=== PATIENT | male | born 1995 | race Caucasian/White ===

== ENCOUNTER 2017-05-24 14:45 | Outpatient (CLI) | payer MEDICAID ==
--- NOTE | 2017-05-24 16:20 | XRAY Report ---
THREE VIEW THORACIC SPINE: 05/24/2017 CLINICAL INDICATION: Pain. COMPARISON: CT chest 10/30/2014. FINDINGS: AP, lateral, swimmer's views of the thoracic spine demonstrate interval posterior luisito and pedicle screw fusion spanning T7 through T10. There is a mild compression fracture of T6. Aortic stent graft is again noted. Posterior luisito and pedicle screw fusion from T11 to the lumbar spine is again noted. IMPRESSION: INTERVAL POSTERIOR LUISITO AND PEDICLE SCREW FUSION SPANNING T7 THROUGH T10, WITH A MILD COMPRESSION DEFORMITY OF T6. TD: 05/24/2017 16:19
--- NOTE | 2017-05-24 16:22 | XRAY Report ---
THREE VIEW LUMBAR SPINE: 05/24/2017 CLINICAL INDICATION: Spine pain. FINDINGS: AP, lateral, and coned down views of the lumbar spine were obtained. There is posterior luisito and pedicle screw fusion spanning T11 through L3, and a second posterior luisito and pedicle screw fusion spanning L5-S1, with a spacer in the L5-S1 disk space. There is no evidence of acute fracture. The bowel gas pattern appears unremarkable. IMPRESSION: POSTERIOR LUISITO AND PEDICLE SCREW FUSIONS ABOVE. NO EVIDENCE OF ACUTE FRACTURE. TD: 05/24/2017 16:21
== END 2017-05-24 14:46 | disposition home or self-care (01) ==
LOC: DI.N 14:45
PROVIDERS: ATTEND Family Medicine
DX: M48.54XA Collapsed vertebra, not elsewhere classified, thoracic region, initial encounter for fracture (principal); Z98.1 Arthrodesis status; G89.4 Chronic pain syndrome; E66.9 Obesity, unspecified; E03.9 Hypothyroidism, unspecified; E04.1 Nontoxic single thyroid nodule
CPT/HCPCS: 36415; 72072; 72100; 80053; 80061; 83721; 84439; 84443; 84481; 85025; 85651; 86376

== ENCOUNTER 2017-05-24 14:49 | Outpatient (CLI) | payer MEDICAID ==
[2017-05-24 18:47] LABS: BASOPHILS % (AUTO) 0.6 %; EOSINOPHILS % (AUTO) 0.6 %; HGB - HEMOGLOBIN 13.5 g/dL (14.0-18.0); LYMPHOCYTES # (AUTO) 1.9 10^3/uL (1.5-3.5); LYMPHOCYTES % (AUTO) 32.8 %; MEAN CORPUSCULAR HGB CONC 32.7 g/dL (32.0-36.0); MEAN CORPUSCULAR VOLUME 82.6 fL (80.0-94.0); MEAN PLATELET VOLUME 8.5 fL (7.4-11.4); MONOCYTES # (AUTO) 0.4 10^3/uL (0.0-1.0); MONOCYTES % (AUTO) 7.3 %; NEUTROPHILS # (AUTO) 3.3 10^3/uL (1.5-6.6); NEUTROPHILS % (AUTO) 58.7 %; PLT - PLATELET COUNT 212 10^3/uL (130-450); RED BLOOD COUNT 4.99 10^6/uL (4.70-6.10); RED CELL DISTRIBUTION WIDTH 13.6 % (12.0-15.0); WHITE BLOOD COUNT 5.7 x10^3/uL (4.8-10.8)
[2017-05-24 19:05] LABS: ALBUMIN 4.3 g/dL (3.2-5.5); ALBUMIN/GLOBULIN RATIO 1.5 (1.0-2.2); ALKALINE PHOSPHATASE 63 IU/L (42-121); ALT ALANINE AMINOTRANSFERASE 23 IU/L (10-60); AST ASPARTATE AMINOTRANSFERASE 18 IU/L (10-42); BILIRUBIN,TOTAL 0.4 mg/dL (0.2-1.0); BUN - BLOOD UREA NITROGEN 15 mg/dL (6-20); CARBON DIOXIDE - CO2 29 mmol/L (21-32); CHLORIDE 106 mmol/L (101-111); CHOL/HDL RATIO 4.4 (<5.0); CHOLESTEROL 140 mg/dL; CREATININE 0.7 mg/dL (0.6-1.2); GFR - MDRD 142 (>89); GLUCOSE 80 mg/dL (70-100); HDL CHOLESTEROL 32 mg/dL; LDL CHOLESTEROL,CALCULATED 74 mg/dL; LDL/HDL RATIO 2.3 (<3.6); SODIUM 139 mmol/L (135-145); TOTAL PROTEIN 7.1 g/dL (6.7-8.2); VLDL CHOLESTEROL 34 mg/dL
[2017-05-24 19:16] LABS: THYROID STIMULATING HORMONE 2.82 uIU/mL (0.34-5.60)
[2017-05-24 19:18] LABS: FREE T4 (FREE THYROXINE) 0.8 ng/dL (0.58-1.64)
== END 2017-05-24 14:50 | disposition home or self-care (01) ==
LOC: LAB.N 14:49
PROVIDERS: ATTEND Family Medicine
DX: M54.9 Dorsalgia, unspecified (principal); G89.4 Chronic pain syndrome; E66.9 Obesity, unspecified; E03.9 Hypothyroidism, unspecified; E04.1 Nontoxic single thyroid nodule
CPT/HCPCS: 36415; 80053; 80061; 83721; 84439; 84443; 84481; 85025; 85651; 86376

== ENCOUNTER 2017-06-15 21:56 | Emergency (ER) | payer MEDICAID ==
--- NOTE | 2017-06-15 23:05 | ED Physician Documentation ---
PD HPI BACK PAIN - Stated complaint Stated Complaint: LOWER BACK PX - Chief complaint Chief Complaint: Back Pain - History obtained from History obtained from: Patient - History of Present Illness Timing - onset: Today Timing - duration: Hours Timing - details: Abrupt onset, Still present (he has chronic back pain with prior surgeries and has sciatic symptoms to right leg. Is moving here and staying with sister. He slept on he rsofa and has worse pain over baseline today. He says it feels "warm" in the area that is hurting.) Location: Lower Quality: Pain, Spasm, Aching Associated symptoms: Numbness (baseline in leg.). No: Fever, Weakness, Incontinent of urine Worsened by: Movement, Palpation Contributing factors: No: Lifting, Twisting, Trauma Similar symptoms before: Diagnosis (lumbar pain with surgeries, disc problems, and chronic pain.) Recently seen: Not recently seen Review of Systems Constitutional: denies: Fever, Chills Nose: denies: Rhinorrhea / runny nose, Congestion Throat: denies: Sore throat Respiratory: denies: Cough GI: denies: Abdominal Pain Skin: denies: Rash, Lesions Musculoskeletal: reports: Back pain. denies: Neck pain, Extremity pain Neurologic: denies: Generalized weakness PD PAST MEDICAL HISTORY - Past Medical History Cardiovascular: Deep vein thrombosis Respiratory: Asthma Neuro: None Endocrine/Autoimmune: HyPOthyroidism Musculoskeletal: Other - Past Surgical History Past Surgical History: Yes Ortho: Spine surgery - Present Medications Home Medications: Ambulatory Orders Medication Instructions Recorded Confirmed Levothyroxine Sodium [Synthroid] 112 mcg PO DAILY 06/15/17 06/15/17 oxyCODONE/ACET 5/325 [Percocet 5 1 - 2 tab PO PRN PRN 06/15/17 06/15/17 mg/325 mg] Dexamethasone [Decadron] 4 mg PO DAILY #5 tablet 06/16/17 Lidocaine Patch 5% [Lidoderm Patch] 1 each TOP DAILY #10 patch 06/16/17 Oxycodone HCl/Acetaminophen 1 each PO Q6H PRN #20 tablet 06/16/17 [Percocet 5-325 mg Tablet] Tizanidine HCl 4 mg PO TID PRN #30 capsule 06/16/17 - Allergies Allergies/Adverse Reactions: Allergies Allergy/AdvReac Type Severity Reaction Status Date / Time Latex, Natural Rubber AdvReac Respiratory Verified 06/15/17 22:09 levothyroxine AdvReac Unknown Verified 06/15/17 22:09 tape AdvReac Rash Uncoded 06/15/17 22:09 - Social History Does the pt smoke?: No Smoking Status: Never smoker Does the pt drink ETOH?: No Does the pt have substance abuse?: No - Immunizations Immunizations are current?: Yes - POLST Patient has POLST: No PD ED PE NORMAL - Vitals Vital signs reviewed: Yes - General General: Alert and oriented X 3, Well developed/nourished, Other (seems in pain for lumbar area) - HEENT HEENT: Pharynx benign - Neck Neck: Supple, no meningeal sign, No adenopathy - Cardiac Cardiac: RRR, No murmur - Respiratory Respiratory: Clear bilaterally - Abdomen Abdomen: Soft, Non tender - Male Male : Deferred - Rectal Rectal: Deferred - Back Back: No CVA TTP, Other (tender upper lumbar area with prior scar noted, no redness nor sores. Muscular tenderness. No vertebral tnederness to percussion. ) - Derm Derm: Normal color, Warm and dry, No rash - Neuro Neuro: Alert and oriented X 3, No motor deficit, Normal speech, Other ( decreased sensation right lateral lower leg, which is baseline per patient. 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 No new neuro symptoms (prior sciatic still present) and had normal WBC and ESR. I feel he can be treated with meds and no further acute testing. ), d/w patient Departure - Departure Disposition: 01 Home, Self Care Record reviewed to determine appropriate education?: Yes Instructions: ED Low Back Pain Injury Prescriptions: Dexamethasone [Decadron] 4 mg PO DAILY #5 tablet Lidocaine Patch 5% [Lidoderm Patch] 1 each TOP DAILY #10 patch Oxycodone HCl/Acetaminophen [Percocet 5-325 mg Tablet] 1 each PO Q6H PRN #20 tablet PRN Reason: Pain Tizanidine HCl 4 mg PO TID PRN #30 capsule PRN Reason: Spasms Comments: Lidocaine patch over the area that hurts and change it daily. Decadron steroid anti-inflammatory for 5 more days. He can use muscle relaxants tizanidine 3 times a day if needed for spasms and stiffness. Use some ibuprofen or naproxen 2-3 times a day. Add Tylenol or Percocet if needed for worse pain. This would be intended as a short-term treatment hopefully as things improve with the initial medicines. Discharge Date/Time: 06/16/17 02:06
[2017-06-15] MEDS ORDERED: HYDROmorphone 1 MG/ML CARPUJECT IM STA (23:25)
[2017-06-15] MEDS ORDERED: METHOCARBAMOL 500 MG TABLET PO STA (23:25)
[2017-06-15] MEDS ORDERED: KETOROLAC 30 MG/ML VIAL IM STA (23:25)
[2017-06-16 00:26] LABS: BASOPHILS % (AUTO) 0.6 %; EOSINOPHILS # (AUTO) 0.1 10^3/uL (0.0-0.7); EOSINOPHILS % (AUTO) 1.3 %; HGB - HEMOGLOBIN 14.5 g/dL (14.0-18.0); LYMPHOCYTES # (AUTO) 2.2 10^3/uL (1.5-3.5); LYMPHOCYTES % (AUTO) 27.8 %; MEAN CORPUSCULAR HEMOGLOBIN 28.7 pg (27.0-31.0); MEAN CORPUSCULAR HGB CONC 34.4 g/dL (32.0-36.0); MEAN CORPUSCULAR VOLUME 83.5 fL (80.0-94.0); MEAN PLATELET VOLUME 8.4 fL (7.4-11.4); MONOCYTES # (AUTO) 0.8 10^3/uL (0.0-1.0); MONOCYTES % (AUTO) 10.7 %; NEUTROPHILS # (AUTO) 4.6 10^3/uL (1.5-6.6); NEUTROPHILS % (AUTO) 59.6 %; PLT - PLATELET COUNT 189 10^3/uL (130-450); RED BLOOD COUNT 5.06 10^6/uL (4.70-6.10); RED CELL DISTRIBUTION WIDTH 13.8 % (12.0-15.0); WHITE BLOOD COUNT 7.8 x10^3/uL (4.8-10.8)
[2017-06-16] MEDS ORDERED: DEXAMETHASONE 10 MG/ML VIAL PO STA (01:40)
[2017-06-16] MEDS ORDERED: oxyCODONE/ACET 5/325 Prepack 4 PO STA (01:40)
[2017-06-16 01:48] VITALS: BP 141/95
[2017-06-16] MEDS ORDERED: CHERRY SYRUP 10 ML UDC PO ONE (01:52)
== END 2017-06-16 02:06 | disposition home or self-care (01) ==
LOC: ED 21:56
DX: M54.5 Low back pain (principal); G89.29 Other chronic pain; J45.909 Unspecified asthma, uncomplicated; E03.9 Hypothyroidism, unspecified; Z86.718 Personal history of other venous thrombosis and embolism
CPT/HCPCS: 36415; 85025; 85651; 96372; 99283; A9270; J1170

== ENCOUNTER 2019-05-05 16:48 | Emergency (ER) | payer MEDICAID, MEDICARE ==
--- NOTE | 2019-05-05 18:04 | XRAY Report ---
Reason: pain/injury Procedure Date: 05/05/2019 Accession Number: [id number] / [id number] Procedure: XR - Knee 3 View RT CPT Code: Final Report FULL RESULT: EXAM: RIGHT KNEE RADIOGRAPHY EXAM DATE: 05/05/2019 05:21 PM. CLINICAL HISTORY: Pain/injury. COMPARISON: None. TECHNIQUE: 3 views. FINDINGS: Bones: No acute fracture. No suspicious osseous lesion. Joints: No significant joint space narrowing. No dislocation. Other: None. IMPRESSION: No acute osseous abnormality. RADIA
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
[2019-05-05 19:44] VITALS: BP 158/102
== END 2019-05-05 19:47 | disposition home or self-care (01) ==
LOC: ED 16:48
DX: S80.01XA Contusion of right knee, initial encounter (principal); V18.0XXA Pedal cycle driver injured in noncollision transport accident in nontraffic accident, initial encounter; Y93.55 Activity, bike riding
CPT/HCPCS: 99283

== ENCOUNTER 2020-03-29 10:43 | Outpatient (CLI) | payer MEDICAID ==
[2020-03-29 18:16] LABS: BASOPHILS % (AUTO) 0.6 %; EOSINOPHILS # (AUTO) 0.1 10^3/uL (0.0-0.7); EOSINOPHILS % (AUTO) 1.6 %; HGB - HEMOGLOBIN 16.4 g/dL (14.0-18.0); LYMPHOCYTES # (AUTO) 2.2 10^3/uL (1.5-3.5); LYMPHOCYTES % (AUTO) 32.7 %; MEAN CORPUSCULAR HEMOGLOBIN 29.9 pg (27.0-31.0); MEAN PLATELET VOLUME 10.8 fL (7.4-11.4); MONOCYTES # (AUTO) 0.6 10^3/uL (0.0-1.0); MONOCYTES % (AUTO) 9.6 %; NEUTROPHILS # (AUTO) 3.7 10^3/uL (1.5-6.6); NEUTROPHILS % (AUTO) 55.1 %; PLT - PLATELET COUNT 233 10^3/uL (130-450); RED BLOOD COUNT 5.48 10^6/uL (4.70-6.10); RED CELL DISTRIBUTION WIDTH 11.5 % (12.0-15.0); WHITE BLOOD COUNT 6.7 x10^3/uL (4.8-10.8)
[2020-03-29 18:31] LABS: ALBUMIN 4.4 g/dL (3.2-5.5); ALBUMIN/GLOBULIN RATIO 1.5 (1.0-2.2); BILIRUBIN,TOTAL 0.8 mg/dL (0.2-1.0); CALCIUM 9.3 mg/dL (8.5-10.3); CREATININE 0.8 mg/dL (0.6-1.2); TOTAL PROTEIN 7.4 g/dL (6.7-8.2)
[2020-03-29 18:49] LABS: FREE T3 3.19 pg/mL (2.5-3.9); FREE T4 (FREE THYROXINE) 1.06 ng/dL (0.58-1.64)
== END 2020-03-29 10:44 | disposition home or self-care (01) ==
LOC: LAB.N 10:43
PROVIDERS: ATTEND Nurse Practitioner
DX: Z00.00 Encounter for general adult medical examination without abnormal findings (principal); F32.9 Major depressive disorder, single episode, unspecified; E05.90 Thyrotoxicosis, unspecified without thyrotoxic crisis or storm; E03.9 Hypothyroidism, unspecified; E04.1 Nontoxic single thyroid nodule
CPT/HCPCS: 36415; 80053; 84439; 84443; 84481; 85025

== ENCOUNTER 2020-08-02 16:36 | Emergency (ER) | payer MEDICARE, MEDICAID ==
[2020-08-02 16:55] VITALS: BP 145/93
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
--- NOTE | 2020-08-02 18:07 | XRAY Report ---
PROCEDURE: Ankle 3 View RT INDICATIONS: fall, R ankle pain TECHNIQUE: 3 views of the ankle were acquired. COMPARISON: None FINDINGS: Bones: No fractures or dislocations. Ankle mortise is normally aligned. No suspicious bony lesions . Soft tissues: No tibiotalar joint effusion. Achilles tendon appears normal. IMPRESSION: Minimal soft tissue swelling without fracture or foreign body Reviewed by: Paramjit Olvera MD on 08/02/2020 5:05 PM AKDT Approved by: Paramjit Olvera MD on 08/02/2020 5:05 PM AKDT Station ID: [id number]
--- NOTE | 2020-08-02 18:16 | XRAY Report ---
PROCEDURE: Foot 3 View RT INDICATIONS: fall, R foot pain TECHNIQUE: 3 views of the foot were acquired. COMPARISON: None FINDINGS: Bones: No fractures or dislocations. No suspicious bony lesions. Soft tissues: No tibiotalar joint effusion. Achilles tendon appears normal. IMPRESSION: Mild soft tissue swelling without fracture or foreign body Reviewed by: Paramjit Olvera MD on 08/02/2020 5:15 PM [id number] Approved by: Paramjit Olvera MD on 08/02/2020 5:15 PM AKDT Station ID: [id number]
== END 2020-08-02 18:39 | disposition home or self-care (01) ==
LOC: ED 16:36
DX: S93.501A Unspecified sprain of right great toe, initial encounter (principal); S90.411A Abrasion, right great toe, initial encounter; S93.401A Sprain of unspecified ligament of right ankle, initial encounter; W17.89XA Other fall from one level to another, initial encounter; Y93.31 Activity, mountain climbing, rock climbing and wall climbing; Y92.828 Other wilderness area as the place of occurrence of the external cause
CPT/HCPCS: 99282; 99283